=== PATIENT | female | born 2000 | race Hispanic/Latino ===

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

== ENCOUNTER 2023-04-09 08:10 | Emergency (ER) | payer BC, SELFPAY ==
[2023-04-09 08:14] VITALS: BP 136/93; PULSE 125; RESP 18; TEMP 37.7; O2SAT 98
[2023-04-09] MEDS: SODIUM CHLORIDE 0.9% IV 1,000 ML 999 ML IV CONT (08:42)
[2023-04-09] MEDS: KETOROLAC 30 MG/ML VIAL (*BKC) IV PUSH (08:43)
[2023-04-09 08:54] VITALS: RESP 20
[2023-04-09 09:36] LABS: Influenza A QL RT-PCR Negative (Negative); Influenza B QL RT-PCR Negative (Negative); RSV RNA, RT-PCR Negative (Negative); SARS-CoV-2 RNA PCR Negative (Negative)
--- NOTE | 2023-04-09 09:58 | ED.GENADULT ---
HPI - General Adult General Chief complaint: Unspecified Stated complaint: FLU LIKE S/S Time Seen by Provider: 04/09/23 08:17 History of Present Illness HPI narrative: Patient is a 22-year-old female who presents ER with concerns of a viral own this. She woke up this morning with fevers as well as body aches and vomiting. 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 No urinary frequency urgency or dysuria. Her emesis is green which also concerned her. No abdominal pain diarrhea. Related Data Allergies Allergy/AdvReac Type Severity Reaction Status Date / Time Penicillins Allergy Hives Verified 04/09/23 08:23 Review of Systems Review of Systems: All systems reviewed & are unremarkable except as noted in HPI and below Constitutional: Constitutional: Denies chills, Reports fatigue and Reports fever(s) Cardiovascular: Cardiovascular: Reports no additional cardiovascular complaints Respiratory: Respiratory: Reports no additional respiratory complaints Gastrointestinal: Gastrointestinal: Denies abdominal pain, Denies diarrhea, Reports nausea and Reports vomiting PMFSH Past Medical History Medical History (Updated 04/09/23 @ 10:09 by Tra Owens MD) No significant past medical history Surgical History Surgical History (Updated 05/28/19 @ 09:36 by Jana Chua CMA) History of laparoscopic appendectomy History of tonsillectomy Social History Social History Smoking status: Never smoker Exam Narrative: GENERAL: Well-appearing, well-nourished, and in no acute distress. HEAD: Normocephalic, atraumatic. ENT: Mucous membranes moist. NECK: Supple. CHEST: Clear to auscultation. No respiratory distress. HEART: Tachycardic and regular. Normal peripheral pulses. ABDOMEN: Soft, nontender, nondistended. EXTREMITIES: Normal range of motion. No edema. SKIN: Warm, dry, no rash. NEURO: Alert and oriented x3. PSYCH: Normal mood and affect. Course Course Emergency Course: -Course: resting comfortably in the ER. No issues. 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 -External Chart Review: None -Hx from independent Sources: patient -Independent interpretation of studies: viral panel negative. -Interventions: IV fluid and Toradol. -Shared decision making / Disposition: Heart rate improved, patient comfortable with discharge and supportive care. Vital Signs Vital signs: Vital Signs Temperature 99.9 F H 04/09/23 08:14 Pulse Rate 125 H 04/09/23 08:14 Respiratory Rate 18 04/09/23 08:14 Blood Pressure 136/93 H 04/09/23 08:14 Pulse Oximetry 98 04/09/23 08:14 Oxygen Delivery Room Air 04/09/23 08:14 Temperature 99.5 F 04/09/23 10:04 Pulse Rate 100 04/09/23 10:04 Respiratory Rate 20 04/09/23 10:04 Blood Pressure 104/48 L 04/09/23 10:04 Pulse Oximetry 100 04/09/23 10:04 Oxygen Delivery Room Air 04/09/23 08:14 Medical Decision Making Vital Signs Vital Signs: Vital Signs Temperature 99.9 F H 04/09/23 08:14 Pulse Rate 125 H 04/09/23 08:14 Respiratory Rate 18 04/09/23 08:14 Blood Pressure 136/93 H 04/09/23 08:14 Pulse Oximetry 98 04/09/23 08:14 Oxygen Delivery Room Air 04/09/23 08:14 Temperature 99.5 F 04/09/23 10:04 Pulse Rate 100 04/09/23 10:04 Respiratory Rate 20 04/09/23 10:04 Blood Pressure 104/48 L 04/09/23 10:04 Pulse Oximetry 100 04/09/23 10:04 Oxygen Delivery Room Air 04/09/23 08:14 Lab Data Labs: Lab Results 04/09/23 Range/Units 08:31 Influenza A (RT-PCR) Negative (Negative) Influenza B (RT-PCR) Negative (Negative) RSV (RT-PCR) Negative (Negative) SARS-CoV-2 RNA (RT-PCR) Negative (Negative) Discharge Plan Discharge Clinical Impression: Acute viral syndrome Patient Disposition: Home, Self-Ca
[2023-04-09 10:04] VITALS: BP 104/48; PULSE 100; RESP 20; TEMP 37.5; O2SAT 100
== END 2023-04-09 10:38 | disposition home or self-care (01) ==
PROVIDERS: Emergency Provider Emergency Medicine
DX: B34.9 Viral infection, unspecified (principal); Z20.822 Contact with and (suspected) exposure to COVID-19
CPT/HCPCS: 87637; 96361; 96374; 99284; J1885; J7030